=== PATIENT | male | born 1950 | race Two or more races ===

== ENCOUNTER 2024-12-06 13:58 | Observation (INO) | payer MEDICARE, OTHER ==
[2024-12-06 14:07] VITALS: BMI 29.9
[2024-12-06 15:46] LABS: HEMATOCRIT 33.1 % (35.4-49); HEMOGLOBIN 10.2 GM/dL (11.7-16.9); MCH 21.5 pg (25.7-33.7); MCHC 30.9 g/dl (32.0-35.9); MEAN CELL VOLUME 69.7 fl (80-96); MEAN PLT VOLUME 9.1 fl (7.5-11.1); PLATELET COUNT 212 10^3/uL (134-434); RBC 4.75 M/mm3 (4.00-5.60); RDW 20.2 % (11.9-15.9); WHITE BLOOD COUNT 10.6 K/mm3 (4.0-10.0)
[2024-12-06 15:56] LABS: INR 1.09 (0.83-1.09)
[2024-12-06 16:04] LABS: CHLORIDE 104 mmol/L (98-107); SODIUM 133 mmol/L (136-145)
[2024-12-06 16:06] LABS: ALBUMIN 3.6 g/dl (3.4-5.0); CALCIUM 8.7 mg/dL (8.5-10.1)
[2024-12-06 16:07] LABS: BLOOD UREA NITROGEN 14.3 mg/dL (7-18); CO2 28 mmol/L (21-32); GLUCOSE,RANDOM 99 mg/dL (74-106)
[2024-12-06 16:10] LABS: CREATININE 1.1 mg/dL (0.55-1.3); SGOT/AST 131 U/L (15-37)
[2024-12-06 16:12] LABS: BILIRUBIN,TOTAL 0.4 mg/dL (0.2-1)
[2024-12-06 16:13] LABS: ALK PHOS 86 U/L (45-117)
[2024-12-06 16:14] LABS: ANION GAP 1 mmol/L (4-13); POTASSIUM 8.1 mmol/L (3.5-5.1); SGPT/ALT 37 U/L (13-61)
[2024-12-06 16:58] LABS: HIV INTERPRETATION NEGATIVE (NEGATIVE)
[2024-12-06 17:26] LABS: ANISOCYTOSIS 2+; MACROCYTOSIS 1+
[2024-12-06 17:29] LABS: POTASSIUM 4.2 mmol/L (3.5-5.1)
[2024-12-06 17:30] LABS: CALCIUM 8.8 mg/dL (8.5-10.1)
[2024-12-06 17:31] LABS: BLOOD UREA NITROGEN 14.7 mg/dL (7-18)
[2024-12-06 18:51] VITALS: RESP 20
[2024-12-06 20:20] LABS: PH,URINE 5.5 (5.0-8.0); URINE APPEARANCE CLEAR; URINE BILIRUBIN NEGATIVE (NEGATIVE); URINE COLOR YELLOW; URINE GLUCOSE (UA) NEGATIVE (NEGATIVE); URINE KETONE NEGATIVE (NEGATIVE); URINE LEUK ESTERASE NEGATIVE (NEGATIVE); URINE NITRITE NEGATIVE (NEGATIVE); URINE PROTEIN NEGATIVE (NEGATIVE)
[2024-12-06 20:57] LABS: COCAINE, UR NEGATIVE (NEGATIVE); OPIATES, URI NEGATIVE (NEGATIVE); PHENCYCLIDINE,URINE NEGATIVE (NEGATIVE); URINE AMPHETAMINES NEGATIVE (NEGATIVE); URINE BARBITURATES NEGATIVE (NEGATIVE); URINE BENZODIAZEPINES NEGATIVE (NEGATIVE)
[2024-12-06 20:58] LABS: METHADONE, UR NEGATIVE (NEGATIVE)
[2024-12-06] MEDS ORDERED: ALBUTEROL SO4 2.5/IPRATROPIUM 0.5 INH SOL 3 ML VIAL.NEB. NEB PRN (21:12)
[2024-12-06] MEDS: SODIUM CHLORIDE 1,000 ML IV SCH (21:54)
[2024-12-06] MEDS: BUDESONIDE/FORMETEROL FUMARATE 160/4.5 mcg INHALER IH SCH (22:36)
[2024-12-07 00:40] VITALS: TEMP 98.8
[2024-12-07 07:21] LABS: HEMATOCRIT 31.2 % (35.4-49); HEMOGLOBIN 9.7 GM/dL (11.7-16.9); MCH 21.7 pg (25.7-33.7); MEAN CELL VOLUME 69.9 fl (80-96); MEAN PLT VOLUME 9.9 fl (7.5-11.1); PLATELET COUNT 218 10^3/uL (134-434); RBC 4.46 M/mm3 (4.00-5.60); RDW 19.8 % (11.9-15.9); WHITE BLOOD COUNT 9.8 K/mm3 (4.0-10.0)
[2024-12-07 07:55] LABS: POTASSIUM 4.1 mmol/L (3.5-5.1)
[2024-12-07 08:11] LABS: CALCIUM 8.7 mg/dL (8.5-10.1)
[2024-12-07 08:12] LABS: ALBUMIN 3.4 g/dl (3.4-5.0); BLOOD UREA NITROGEN 17.4 mg/dL (7-18)
[2024-12-07 08:15] LABS: PHOSPHOROUS 3.8 mg/dL (2.5-4.9)
[2024-12-07 08:17] LABS: BILIRUBIN,TOTAL 0.6 mg/dL (0.2-1)
[2024-12-07 09:28] VITALS: BP 107/68; PULSE 80
[2024-12-07] MEDS: FERROUS SO4 325 MG TABLET (FP) PO SCH (10:30)
[2024-12-07] MEDS: ENOXAPARIN NA (PORCINE) 40 MG/0.4 ML DISP.SYRIN SQ SCH (10:31)
[2024-12-07] MEDS ORDERED: MECLIZINE HCL 25 MG TABLET (FP) PO PRN (12:44)
== END 2024-12-07 14:02 | disposition home or self-care (01) ==
LOC: JER 13:58 → JERBED 18:29
PROVIDERS: ADMIT Student in an Organized Health Care Education/Training Program
PROC: 3E023GC Introduction of Other Therapeutic Substance into Muscle, Percutaneous Approach (ICD-10-PCS; principal; 2024-12-06)
PROC: 3E0337Z Introduction of Electrolytic and Water Balance Substance into Peripheral Vein, Percutaneous Approach (ICD-10-PCS; 2024-12-06)
DX: R55 Syncope and collapse (principal); D50.9 Iron deficiency anemia, unspecified; R06.02 Shortness of breath; G47.33 Obstructive sleep apnea (adult) (pediatric); F17.210 Nicotine dependence, cigarettes, uncomplicated
CPT/HCPCS: 36415; 70450-TC; 71046-TC-FY; 71250-TC; 80048; 80053; 80061; 80307; 81003; 82728; 82962; 83036; 83540; 83550; 83735; 83880; 84100; 84443; 84484; 85025; 85027; 85045; 85610; 85730; 86803; 87086; 87389; 93005; 93010; 96360; 96372; 99285-25; G0378